=== PATIENT | male | born 2000 | race African-American/Black ===

== ENCOUNTER 2022-08-24 23:11 | Emergency (ER) | payer BC, SELFPAY ==
[2022-08-24 23:07] VITALS: BP 159/99; PULSE 80; RESP 15; O2SAT 99
[2022-08-24 23:23] VITALS: PULSE 73; RESP 21; O2SAT 96
[2022-08-24 23:42] VITALS: PULSE 81; RESP 13; O2SAT 99
[2022-08-24 23:45] VITALS: PULSE 77; RESP 12; O2SAT 100
[2022-08-24 23:47] VITALS: BP 144/95; PULSE 83; RESP 17; O2SAT 100
--- NOTE | 2022-08-24 23:48 | ECG_ITS ---
Measurements Intervals [place] Rate: 74 P: 18 MA: 140 QRS: 43 QRSD: 89 T: 34 QT: 363 QTc: 404 Interpretive Statements SINUS RHYTHM MODERATE VOLTAGE CRITERIA FOR LVH, CONSIDER NORMAL VARIANT [MEETS CRITERIA IN ONE OF: R(aVL), S(V1), R(V5), R(V5/V6)+S(V1)] NO PREVIOUS ECG AVAILABLE FOR COMPARISON Electronically Signed On 08-25-2022 12:01:19 [employer] by Taj Brunner M.D.
--- NOTE | 2022-08-24 23:54 | ED.GENADULT ---
HPI - General Adult General Chief complaint: Anxiety Stated complaint: PANIC ATTACK Time Seen by Provider: 08/24/22 23:23 History of Present Illness HPI narrative: this is a 21-year-old male presenting to the ED w/ anxiety and chest pain. The patient does not recall the events leading up to it. He was found by his sr. media manager essentially curled up into a ball the floor and nonresponsive. At this time the patient is denying homicidal or suicidal ideation. He is denying hallucinations. He says that he has been having episodes like this since he attempted to take his own life 2 years ago. He does have a history of panic attacks but states that this is not what is going on. He is describing chest pain that is a heaviness over his chest is nonradiating, 10 out 10 intensity and constant. He says he has this every single day and that improves by being by himself and is worse when he is around others. assocaited with palpitations but not diaphoresis, nausea vomiting or exertion. Patient says he has been evaluated multiple times in [facility] and that he was diagnosed with some sort of heart disease but he does not know what it was. He says that he has had many heart attacks in the past but he cannot give me any sort of medical information on what these are. Related Data Allergies Allergy/AdvReac Type Severity Reaction Status Date / Time No Known Allergies Allergy Verified 08/24/22 23:20 Review of Systems Review of Systems: CONSTITUTIONAL: Denies night sweats. EYES: No eye pain ENT: Denies rhinorrhea CARDIOVASCULAR: Meds palpitation RESPIRATORY: Denies hemoptysis GASTROINTESTINAL: Denies hematemesis GENITOURINARY: Denies hematuria. SKIN: Denies rash MUSCULOSKELETAL: Denies myalgia. NEUROLOGIC: Denies weakness. PSYCHIATRIC: Denies delusions PMFSH Social History Social History Substance use type: does not use Exam Narrative: APPEARANCE: patient appears anxious Head: atraumatic. EYES: EOMI, NOSE: Atraumatic NECK: Trachea midline RESPIRATORY: No increased rate of breathing, clear to auscultation bilaterally CARDIOVASCULAR: RRR, no peripheral edema ABDOMINAL: Non-distended MUSCULOSKELETAl: No obvious deformities NEURO: Alert. Moving 4/4 extremities SKIN:: Warm, dry. Normal color PSYCHIATRIC: Normal affect Course Vital Signs Vital signs: Vital Signs Pulse Rate 80 08/24/22 23:07 Respiratory Rate 15 08/24/22 23:07 Blood Pressure 159/99 H 08/24/22 23:07 Pulse Oximetry 99 08/24/22 23:07 Oxygen Delivery Room Air 08/24/22 23:07 Pulse Rate 65 08/25/22 00:47 Respiratory Rate 18 08/25/22 00:47 Blood Pressure 145/79 H 08/25/22 00:47 Pulse Oximetry 100 08/25/22 00:47 Oxygen Delivery Room Air 08/24/22 23:07 Medical Decision Making MDM Narrative Medical decision making narrative: this is a 21-year-old male presenting to ED with anxiety and chest pain. Patient states that he has some sort of heart disease but cannot tell me what it is. Because of this a broader workup has been ordered. Patient has been given Ativan for his anxiety. EKG interpretation: Rhythm [sinus], Rate 74, [place] -[normal], [place] -[normal], QRS [narrow], QTC [normal], T waves -[negative for concerning inversions], ST Segments - [Negative for concerning elevations] Final interpretations: Normal sinus rhythm with diffuse ST elevation which is likely benign early repolarization in a 21-year-old male Laboratory studies were within normal limits. Patient has 2- troponins. Urine drug screen is positive for cannabinoids. Patient was re-evaluated states he is feeling better. He would like to go home. Patient will be given primary care follow-up. who has been encouraged to follow up to establish primary care and get treatment for his anxiety Vital Signs Vital Signs: Vital Signs Pulse Rate 80 08/24/22 23:07 Respiratory Rate 15 08/24/22 23:07 Blood Pressure 159/99 H 08/24/22 23:07 Pulse Oxi
[2022-08-25] VITALS: PULSE 66; RESP 23
[2022-08-25] MEDS: LORazepam (*CRX) 1 MG TABLET PO (00:06)
[2022-08-25 00:16] LABS: Basophils Percent Auto 0.3 % (0.2-1.2); Eosinophils Percent Auto 0.1 % (0-4.4); Hematocrit 45.3 % (42.0-52.0); Hemoglobin 14.8 g/dL (14.0-18.0); Immature Granulocyte Absolute 0.01 K/mm3 (0.00-0.031); Immature Granulocyte Percent A 0.1 % (0-0.5); Lymphocytes Absolute Auto 0.98 K/mm3 (0.9-3.2); Lymphocytes Percent Auto 14.3 % (18.3-44.2); Mean Corpuscular HGB Conc 32.7 g/dl (32-36); Mean Corpuscular Hemoglobin 31.1 pg (26-34); Mean Corpuscular Volume 95.2 fl (80-100); Mean Platelet Volume 10.2 fl (7.4-10.4); Monocytes Absolute Auto 0.3 K/mm3 (0.1-0.6); Monocytes Percent Auto 3.8 % (2.6-8.5); Neutrophils Absolute Auto 5.6 K/mm3 (1.3-6.7); Neutrophils Percent Auto 81.4 % (45.5-73.1); Platelet Count Result 241 k/mm3 (150-375); Red Blood Count 4.76 M/mm3 (4.6-6.20); White Blood Count 6.8 K/mm3 (4.5-10.0)
[2022-08-25 00:21] LABS: Alanine Aminotransferase 22 U/L (6-50); Albumin Level 4.7 g/dL (3.5-5.1); Alkaline Phosphatase 71 U/L (38-126); Anion Gap 8 mmol/L (8-16); Aspartate Amino Transferase 30 U/L (17-59); Bilirubin,Total 0.4 mg/dL (0.2-1.3); Blood Urea Nitrogen 11 mg/dL (9-20); Carbon Dioxide 25 mmol/L (22-30); Chloride 105 mmol/L (98-107); Estimated CRCL calculation 125 ml/min; Estimated Glomerular Filt Rate > 60; Glucose 118 mg/dL (65-110); Potassium 4.2 mmol/L (3.4-5.0); Sodium 138 mmol/L (137-145)
[2022-08-25 00:24] LABS: Appearance Urine Clear (Clear); Bilirubin Urine Negative (Negative); Blood Urine Negative (Negative); Color Urine Yellow (Yellow); Glucose Urine UA Negative (Negative); Ketones Urine Negative (Negative); Leukocyte Esterase Ur Negative LEU/UL (Negative); Nitrate Urine Negative (Negative); Protein Urine Negative (Negative); Urobilinogen Urine 0.2 mg/dL (<2.0); pH Urine 6.5 (5.0-9.0)
[2022-08-25 00:30] LABS: Ethanol < 10 mg/dL (<10)
[2022-08-25 00:33] VITALS: PULSE 77; RESP 18; O2SAT 100
[2022-08-25 00:33] LABS: Add Urine Microscopic? NO
[2022-08-25 00:44] LABS: Amphetamine Screen Urine Negative (Negative); Barbiturate Screen Urine Negative (Negative); Benzodiazepines Screen Urine Negative (Negative); Cannabinoid Screen Urine Positive (Negative); Cocaine Screen Urine Negative (Negative); Methadone Screen Urine Negative (Negative); Opiate Screen Urine Negative (Negative); Phencyclidine Screen Urine Negative (Negative)
[2022-08-25 00:45] VITALS: PULSE 67; RESP 14; O2SAT 100
[2022-08-25 00:47] VITALS: BP 145/79; PULSE 65; RESP 18; O2SAT 100
[2022-08-25 00:51] LABS: Thyroid Stimulating Hormone 0.497 uIU/mL (0.465-4.680)
[2022-08-25 03:23] LABS: Troponin I < 0.012 ng/mL (0.000-0.034)
== END 2022-08-25 04:27 | disposition home or self-care (01) ==
PROVIDERS: Emergency Provider Emergency Medicine
DX: F41.9 Anxiety disorder, unspecified (principal)
CPT/HCPCS: 36415; 80053; 80307; 81003; 84443; 84484; 85025; 93005; 99284; A9270